=== PATIENT | male | born 1970 | race Hispanic/Latino ===

== ENCOUNTER 2018-07-03 22:07 | Emergency (ER) | payer OTHER ==
--- NOTE | 2018-07-03 22:44 | Emergency Department Report ---
ED Psych HPI - General Stated Complaint: MH EVAL/SUICIDAL THOUGHTS Time Seen by Provider: 07/03/18 22:29 Source: patient Mode of arrival: Stretcher Limitations: No Limitations - History of Present Illness Initial Comments: Patient is a 48-year-old male presents to emergency with complaints of depression, suicidal ideation with a plan and anxiety. Patient states his depression started about 4 days ago and is worsening. Patient states for the last 2 days he has had suicidal thoughts. Patient states his plan will be to hang himself. Patient states she is also anxious. Patient denies homicidal ideations. Patient denies lacerations. MD Complaint: suicidal ideation, feels depressed -: Sudden Associated Psychiatric Symptoms: depression, suicidal ideation, racing thoughts History of same: Yes Quality: constant Improves With: none Worsens With: none Context: significant life stressor Associated Symptoms: denies: confusion, headache, shortness of breath, nausea, vomiting, syncope, insomnia Treatments Prior to Arrival: none If Self Harm: admits thoughts of, has plan - Related Data Allergies Allergy/AdvReac Type Severity Reaction Status Date / Time No Known Allergies Allergy Unverified 07/04/18 02:37 ED Review of Systems ROS: Stated complaint: MH EVAL/SUICIDAL THOUGHTS Other details as noted in HPI Constitutional: denies: chills, fever Eyes: denies: eye pain, eye discharge, vision change ENT: denies: ear pain, throat pain Respiratory: denies: cough, shortness of breath, wheezing Cardiovascular: denies: chest pain, palpitations Endocrine: no symptoms reported Gastrointestinal: denies: abdominal pain, nausea, diarrhea Genitourinary: denies: urgency, dysuria Musculoskeletal: denies: back pain, joint swelling, arthralgia Skin: denies: rash, lesions Neurological: denies: headache, weakness, paresthesias Psychiatric: anxiety, depression, suicidal thoughts. denies: auditory hallucinations, visual hallucinations, homicidal thoughts Hematological/Lymphatic: denies: easy bleeding, easy bruising ED Past Medical Hx - Past Medical History Previous Medical History?: Yes Hx Psychiatric Treatment: Yes Additional medical history: Traumatic brain injury. Depression. Anxiety. - Surgical History Past Surgical History?: No - Family History Family history: no significant - Social History Smoking Status: Never Smoker Substance Use Type: Cocaine ED Physical Exam - General Limitations: No Limitations General appearance: alert, in no apparent distress - Head Head exam: Present: atraumatic, normocephalic - Eye Eye exam: Present: normal appearance - ENT ENT exam: Present: mucous membranes moist - Neck Neck exam: Present: normal inspection - Respiratory Respiratory exam: Present: normal lung sounds bilaterally. Absent: respiratory distress - Cardiovascular Cardiovascular Exam: Present: regular rate, normal rhythm. Absent: systolic murmur, diastolic murmur, rubs, gallop - GI/Abdominal GI/Abdominal exam: Present: soft, normal bowel sounds - Rectal Rectal exam: Present: deferred - Extremities Exam Extremities exam: Present: normal inspection - Back Exam Back exam: Present: normal inspection - Neurological Exam Neurological exam: Present: alert, oriented X3 - Psychiatric Psychiatric exam: Present: depressed, flat affect, suicidal ideation - Skin Skin exam: Present: warm, dry, intact, normal color. Absent: rash ED Course Vital Signs 07/04/18 00:00 Temperature 98.4 F Pulse Rate 98 H Respiratory 16 Rate Blood Pressure 131/78 O2 Sat by Pulse 100 Oximetry - Reevaluation(s) Reevaluation #1: Initial evaluation done. 1013 signed. Mental health evaluation ordered. 07/03/18 22:43 Patient is medically cleared. Patient remained in the ER on a 1013. Patient is an ER call. Discussed all results with patient. 07/04/18 03:34 ED Medical Decision Making - Lab Data Result diagrams: 07/04/18 02:45 07/04/18 02:45 - Medical Decision Making Patient is a 48-year-old male presents emergency room with complaints of suicidal ideations with a plan and depression. Patient laced on 1013 immediately upon arrival. Patient evaluated by mental health. Patient's labs done and essentially unremarkable except for UDS. Patient will remain on a 1013 until accepted into appropriate psychiatric facility. - Differential Diagnosis depression. Suicidal ideation. Critical care attestation.: If time is entered above; I have spent that time in minutes in the direct care of this critically ill patient, excluding procedure time. ED Disposition Clinical Impression: Suicidal ideation, Acute depression, Polysubstance abuse Disposition: [id number]/[place]-[id number] PSY HOSP/PSY UNIT Is pt being admited?: No Does the pt Need Aspirin: No Condition: Stable Additional Instructions: pt Is medically cleared. Referrals: PRIMARY CARE, [Primary Care Provider] - 3-5 Days Time of Disposition: 03:35
[2018-07-04 02:51] LABS: Bacteria,Urine 1+ /HPF (Negative); Bilirubin,Urine NEG (Negative); Blood,Urine NEG (Negative); Color,Urine Yellow (Yellow); Mucus,Urine FEW /HPF; Protein,Urine <15 mg/dL mg/dL (Negative); Urobilinogen,Urine < 2.0 mg/dL (<2.0)
[2018-07-04 02:54] LABS: Benzodiazepines Screen,Urine PRESUMPTIVE NEGATIVE; Cannabinoid Screen,Urine PRESUMPTIVE NEGATIVE; Methadone Screen,Urine PRESUMPTIVE NEGATIVE; Opiate Screen,Urine PRESUMPTIVE NEGATIVE
[2018-07-04 03:05] LABS: Basophils % (Auto) 0.9 % (0.0-1.8); Eosinophils # (Auto) 0.1 K/mm3 (0.0-0.4); Eosinophils % (Auto) 1.1 % (0.0-4.3); Hematocrit 41.6 % (35.5-45.6); Hemoglobin 13.7 gm/dl (11.8-15.2); Lymphocytes # (Auto) 1.6 K/mm3 (1.2-5.4); Lymphocytes % (Auto) 27.9 % (13.4-35.0); Mean Corpuscular HGB Conc 33 % (32-34); Mean Corpuscular Volume 88 fl (84-94); Monocytes # (Auto) 0.5 K/mm3 (0.0-0.8); Monocytes % (Auto) 8.7 % (0.0-7.3); Platelet Count 242 K/mm3 (140-440); Red Blood Count 4.71 M/mm3 (3.65-5.03); Red Cell Distribution Width 15.3 % (13.2-15.2)
[2018-07-04 03:07] LABS: Amphetamine Screen,Urine PRESUMPTIVE POSITIVE; Cocaine Screen,Urine PRESUMPTIVE POSITIVE
[2018-07-04 03:23] LABS: Alanine Aminotransferase 17 units/L (7-56); Albumin 3.6 g/dL (3.9-5); BUN/Creatinine Ratio 15; Blood Urea Nitrogen 15 mg/dL (9-20); Calcium 8.8 mg/dL (8.4-10.2); Hemolysis Index 12
--- NOTE | 2018-07-04 12:11 | Consultation ---
History of Present Illness - Reason for Consult Consult date: 07/04/18 Reason for consult: Mental Health Evaluation Requesting physician: MEHUL LOPEZ III - Chief Complaint Chief complaint: "I don't know what to do" - History of Present Psychiatric Illness 8-year-old male presented to the ER for SI's. Today the patient is calm, but guarded during the assessment. He wouldn't answer some of questions asked of him. He did state that he was recently fired from his job and denied his check for hours worked. He stated that he decided to use recreational drugs to self medicate to lower his depression. He stated that he live in [place], [place] and came to the [place] area to work. He continues to endorse SI's, but would not confirm or deny a suicide plan. He denies HiI's and AVH's. He stated that he took Prozac in the past for depression. Medications and Allergies Allergies Allergy/AdvReac Type Severity Reaction Status Date / Time No Known Allergies Allergy Unverified 07/04/18 02:37 Past psychiatric history - Past Medical History Past Medical History: No medical history Past Surgical History: No surgical history - past Psychiatric treatment and history psychiatric treatment history: Hx of depression. Denies a fam psy hx. - Social History Social history: other (Homeless) Mental Status Exam - Vital signs Last Vital Signs Temp 97.4 F L 07/04/18 08:28 Pulse 64 07/04/18 08:28 Resp 16 07/04/18 08:28 BP 117/79 07/04/18 08:28 Pulse Ox 98 07/04/18 08:28 - Exam Narrative exam: MSE: Appearance: calm, cooperative Behavior: regular eye contact Speech: regular rate and tone Mood: guarded Affect: congruent to mood Thought Process: circumstantial Thought Content: denies HI's and AVH's Motor Activity: ambulatory Cognition: A/O x 3 Insight: variable Judgment: variable Results Result Diagrams: 07/04/18 02:45 07/04/18 02:45 Abnormal lab results 07/04/18 07/04/18 07/04/18 Range/Units 02:45 02:45 02:45 RDW 15.3 H (13.2-15.2) % [place] % (Auto) 8.7 H (0.0-7.3) % Potassium 3.4 L (3.6-5.0) mmol/L Glucose 176 H (75-100) mg/dL Total Bilirubin 1.40 H (0.1-1.2) mg/dL Total Protein 6.0 L (6.3-8.2) g/dL Albumin 3.6 L (3.9-5) g/dL Salicylates < 0.3 L (2.8-20.0) mg/dL Acetaminophen (10.0-30.0) ug/mL 07/04/18 Range/Units 02:45 RDW (13.2-15.2) % [place] % (Auto) (0.0-7.3) % Potassium (3.6-5.0) mmol/L Glucose (75-100) mg/dL Total Bilirubin (0.1-1.2) mg/dL Total Protein (6.3-8.2) g/dL Albumin (3.9-5) g/dL Salicylates (2.8-20.0) mg/dL Acetaminophen < 5.0 L (10.0-30.0) ug/mL All other labs normal. Assessment and Plan Assessment and plan: Impression: MDD, Severe Type. Substance Use DO (cocaine/amphetamines). Today the patient is calm, but guarded during the assessment. The patient endorsed Si's. DDx: Substance Induced Mood DO Recommendation/Plan: Continue 1013 and start Prozac 20 mg Po daily for depression. Discussed possible suicidality/medication induced cami with the jen moreno reference Prozac. Dispo: The patient was referred to inpatient psy services, Will staff with Dr. Hollie Suazo.
[2018-07-04] MEDS: PROzac PO SCH (15:00)
[2018-07-05] MEDS: PROzac PO SCH (10:33)
--- NOTE | 2018-07-05 10:33 | Progress Note ---
Subjective - Reason for Consult Consult date: 07/05/18 Reason for consult: Psychiatry Follow-up - Chief Complaint Chief complaint: "Nothing is getting better" 58-year-old male presented to the ER for SI's. Today the patient is calm during the assessment. He stated that he has no reason to live at this time. He continue to be guarded throughout the interview. He continue to endorse SI's, but would not confirm or deny a suicide plan when asked. He denies HI's and AVH's. He denies any side effects of his medication. Mental Status Exam - Vital signs Last Vital Signs Temp 97.7 F 07/05/18 02:39 Pulse 56 L 07/05/18 02:39 Resp 98 H 07/05/18 02:39 BP 105/66 07/05/18 02:39 Pulse Ox 98 07/05/18 02:39 - Exam Narrative exam: MSE: Appearance: calm Behavior: regular eye contact Speech: regular rate and tone Mood: guarded Affect: flat Thought Process: circumstantial Thought Content: denies HI's and AVH's Motor Activity: ambulatory Cognition: A/O x 3 Insight: variable Judgment: poor Assessment and Plan Impression: MDD, Severe Type. Substance Use DO (cocaine/amphetamines). Today the patient is calm during the assessment. The patient continues to endorse Si's. DDx: Substance Induced Mood DO Recommendation/Plan: Continue 1013 and Prozac 20 mg Po daily for depression. Discussed possible suicidality/medication induced cami with the patient reference Prozac. Dispo: The patient was referred to inpatient psy services, Will staff with Dr. Hollie Suazo.
[2018-07-05 19:57] VITALS: BP 110/51
== END 2018-07-06 01:04 ==
LOC: ED 22:07 → EEVIPCON 22:07 → ED 07-06 01:04
DX: F32.9 Major depressive disorder, single episode, unspecified (principal); F41.9 Anxiety disorder, unspecified; F14.10 Cocaine abuse, uncomplicated; F15.10 Other stimulant abuse, uncomplicated; F32.3 Major depressive disorder, single episode, severe with psychotic features
CPT/HCPCS: 36415; 80053; 80307; 81001; 85025; 93005; 93010; 99285; G0480; 80320